=== PATIENT | female | born 1975 | race Native Hawaiian/Other Pacific Islander ===

== ENCOUNTER 2019-01-20 23:21 | Inpatient (IN) | payer SELFPAY ==
[2019-01-21 01:02] LABS: BUN/Creatinine Ratio 18; Blood Urea Nitrogen 9 mg/dL (7-17); Calcium 8.4 mg/dL (8.4-10.2); Hemolysis Index 0
--- NOTE | 2019-01-21 01:48 | XRay Report ---
CHEST 2 VIEWS INDICATION / CLINICAL INFORMATION: Dyspnea for 1.5 months. COMPARISON: None available. FINDINGS: SUPPORT DEVICES: None. HEART / MEDIASTINUM: No significant abnormality. LUNGS / PLEURA: No significant pulmonary or pleural abnormality. No pneumothorax. ADDITIONAL FINDINGS: No significant additional findings. IMPRESSION: 1. No acute findings. Signer Name: Marcelo Boss MD Signed: 01/21/2019 1:43 AM Workstation Name: [id number]
[2019-01-21 01:53] LABS: Red Blood Count 1.88 M/mm3 (3.65-5.03)
[2019-01-21 01:55] LABS: Hemoglobin 2.9 gm/dl (10.1-14.3)
[2019-01-21 01:56] LABS: Hematocrit 10.8 % (30.3-42.9); Mean Corpuscular HGB Conc 27 % (30-34); Mean Corpuscular Volume 57 fl (79-97); Platelet Count 279 K/mm3 (140-440); Red Cell Distribution Width 23.3 % (13.2-15.2)
--- NOTE | 2019-01-21 02:06 | Emergency Department Report ---
ED Female HPI - General Chief complaint: Vaginal Bleeding Stated complaint: CHEST PAIN, SWOLLEN FEET, HEAD PRESSURE Source: patient Mode of arrival: Ambulatory Limitations: No Limitations - History of Present Illness Initial comments: Patient is a A1 43-year-old female with no past medical history who presents to the ED with complaint of acute onset persistent heavy vaginal bleeding for 3 months, and persistent generalized fatigue and weakness, shortness of breath, chest pain and bilateral lower extremities edema for the last 2 months. Patient states that she has not been evaluated by any physician. Patient states that her shortness of breath is worse with exertion. Patient denies dizziness, syncope, fever, chills, cough, abdominal pain, dysuria, urin antoni frequency and urgency, seizures, nausea and vomiting or diarrhea. MD Complaint: vaginal bleeding, other (generalized weakness and fatigue, shortness of breath and chest pain) -: Gradual, month(s) (3) Location: other (vaginal) Radiation: non-radiating Severity: mild Severity scale (0 -10): 2 Quality: cramping, dull Consistency: intermittent Improves with: none Worsens with: none Are you Now?: No Associated Symptoms: denies other symptoms, vaginal bleeding, hematuria, shortness of breath, weakness. denies: vaginal discharge, abdominal pain, nausea/vomiting, fever/chills, headaches, loss of appetite, dysuria, rash, seizure, syncope - Related Data Sexually active: Yes Allergies Allergy/AdvReac Type Severity Reaction Status Date / Time No Known Allergies Allergy Unverified 01/20/19 23:45 ED Review of Systems ROS: Stated complaint: CHEST PAIN, SWOLLEN FEET, HEAD PRESSURE Other details as noted in HPI Constitutional: weakness. denies: chills, fever Eyes: denies: eye pain, eye discharge, vision change ENT: denies: ear pain, throat pain Respiratory: shortness of breath. denies: cough, wheezing Cardiovascular: chest pain. denies: palpitations Endocrine: no symptoms reported Gastrointestinal: denies: abdominal pain, nausea, vomiting, diarrhea Genitourinary: denies: urgency, dysuria, discharge Musculoskeletal: denies: back pain, joint swelling, arthralgia Skin: denies: rash, lesions Neurological: denies: headache, weakness, paresthesias Psychiatric: denies: anxiety, depression Hematological/Lymphatic: denies: easy bleeding, easy bruising ED Past Medical Hx - Past Medical History Previous Medical History?: No - Surgical History Past Surgical History?: Yes Hx Appendectomy: Yes - Social History Smoking Status: Current Every Day Smoker Substance Use Type: Marijuana ED Physical Exam - General Limitations: No Limitations General appearance: alert, in no apparent distress - Head Head exam: Present: atraumatic, normocephalic, normal inspection - Eye Eye exam: Present: normal appearance, PERRL, EOMI Pupils: Present: normal accommodation - ENT ENT exam: Present: normal exam, normal orophraynx, mucous membranes moist, TM's normal bilaterally, normal external ear exam - Neck Neck exam: Present: normal inspection, full ROM - Respiratory Respiratory exam: Present: normal lung sounds bilaterally. Absent: respiratory distress, wheezes, rales, rhonchi, chest wall tenderness, decreased breath sounds, prolonged expiratory - Cardiovascular Cardiovascular Exam: Present: normal rhythm, tachycardia, normal heart sounds. Absent: systolic murmur, diastolic murmur, rubs, gallop - GI/Abdominal GI/Abdominal exam: Present: soft, normal bowel sounds. Absent: tenderness, guarding, rebound, hyperactive bowel sounds, hypoactive bowel sounds, organomega ly, mass - Bi-manual exam: Present: other (deferred pelvic exam, patient preference) - Extremities Exam Extremities exam: Present: normal inspection, normal capillary refill - Back Exam Back exam: Present: normal inspection, full ROM. Absent: CVA tenderness (L), paraspinal tenderness, vertebral tenderness - Neurological Exam Neurological exam: Present: alert, oriented X3, CN II-XII intact, normal gait, reflexes normal - Psychiatric Psychiatric exam: Present: normal affect, normal mood - Skin Skin exam: Present: warm, dry, intact, normal color. Absent: rash ED Course Vital Signs 01/20/19 23:32 Temperature 98.9 F Pulse Rate 108 H Respiratory 16 Rate Blood Pressure 120/52 O2 Sat by Pulse 99 Oximetry - Reevaluation(s) Reevaluation #1: 01/21/19 02:05 This is a 43-year-old female who presented to the ED with persistent heavy vaginal bleeding, generalized weakness and fatigue, shortness of breath and chest pain with bilateral lower extremity edema for the last 3 months worse in the last 1 month. In the ED, patient is alert and oriented 3, is tachycardic in triage but in no acute distress. Chest x-ray shows no acute cardiopulmonary abnormalities or pneumonitis. EKG shows sinus tachycardia with ventricular rate of 109 bpm, no ST or T-wave abnormalities or pathological Q waves. Lab test results were reviewed and showed hemoglobin of 2.9% and hematocrit of 10.8. The rest of the lab test results are nonactionable. Patient received normal saline IV fluids in the ED, type and screen of the blood was also ordered. The plan is to admit the patient to the hospital for further blood transfusion. Complicated the same plan to the patient and family verbalized understanding. Patient case discussed with the ED attending Physician Dr. Naylor who advised on admission to the Hospitalist Physician telephone solicitor Dr. Marte. 01/21/19 02:07 01/21/19 02:08 Reevaluation #2: 01/21/19 02:21 This is a patient's case with the hospitalist physician telephone solicitor Dr. Marte who advised that the patient be admitted by the CAGER OPERATOR physician on-call since the patient is still having vaginal bleeding, as the cause of the anemia. 01/21/19 03:00 Reevaluation #3: 01/21/19 02:40 I paged and discussed the patient's case with Ms Martinez the application services manager telephone solicitor for Dr. Kumar the [facility] OPERATOR physician of [facility] group who in turn paged Dr. Kumar for direction. I then discussed the patient's case with Dr. Kumar, the [facility] [facility] Physician telephone solicitor who admitted the patient to mother-baby floor for further evaluation. ED Medical Decision Making - Lab Data Result diagrams: 01/21/19 01:09 01/21/19 00:05 - EKG Data EKG shows normal: sinus rhythm Rate: tachycardia - EKG Data 01/21/19 02:10 Sinus tachycardia, ventricular rate of 109 bpm, no ST or T-wave abnormalities or pathological Q waves - Radiology Data Radiology results: report reviewed, image reviewed Chest x-ray shows no acute cardiopulmonary abnormalities or pneumonitis. - Medical Decision Making This is a 43-year-old female who presented to the ED with persistent heavy vaginal bleeding, generalized weakness and fatigue, shortness of breath and chest pain with bilateral lower extremity edema for the last 3 months worse in the last 1 month. In the ED, patient is alert and oriented 3, is tachycard ic in triage but in no acute distress. Chest x-ray shows no acute cardiopulmonary abnormalities or pneumonitis. EKG shows sinus tachycardia with ventricular rate of 109 bpm, no ST or T-wave abnormalities or pathological Q waves. Lab test results were reviewed and showed hemoglobin of 2.9% and hem atocrit of 10.8. The rest of the lab test results are nonactionable. Patient received normal saline IV fluids in the ED, type and screen of the blood was also ordered. The plan is to admit the patient to the hospital for further blood transfusion. Complicated the same plan to the patient and family verbalized understanding. Patient case discussed with the ED attending Physician Dr. Naylor who advised on admission to the Hospitalist Physician telephone solicitor Dr. Marte. This is a patient's case with the hospitalist physician telephone solicitor Dr. Marte who advised that the patient be admitted by the CAGER OPERATOR physician on-call since the patient is still having vaginal bleeding, as the cause of the anemia. I then discussed the patient's case with Dr. Kumar, the [facility] [facility] Physician telephone solicitor who admitted the patient to mother-baby floor for further evaluation. - Differential Diagnosis Microcytic anemia; Generalized weakness; Vaginal bleeding Critical Care Time: Yes Critical care time in (mins) excluding proc time.: 45 Critical care attestation.: If time is entered above; I have spent that time in minutes in the direct care of this critically ill patient, excluding procedure time. Critical Care Time: 45 minutes ED Disposition Clinical Impression: Hx of microcytic hypochromic anemia, Dysfunctional uterine hemorrhage, Generalized weakness Disposition: 09 OP ADMIT IP TO THIS HOSP Is pt being admited?: Yes Condition: Stable Referrals: PRIMARY CARE, [Primary Care Provider] - 3-5 Days Time of Disposition: 03:02 Print Language: THAI
[2019-01-21] MEDS ORDERED: SODIUM CHLORIDE 0.9% 500 ML 500 ML IV ONE (03:10)
[2019-01-21] MEDS ORDERED: MORPHINE 4 MG/1 ML INJ IV ONE (04:37)
[2019-01-21] MEDS ORDERED: ONDANSETRON 4 MG/2 ML INJ IV ONE (04:37)
[2019-01-21] MEDS ORDERED: MORPHINE 4 MG/1 ML INJ ONE (04:41)
[2019-01-21] MEDS ORDERED: ONDANSETRON 4 MG/2 ML INJ ONE (04:41)
[2019-01-21 05:22] LABS: Basophils % (Manual) 0 % (0.0-1.8); Hypochromasia 3+; Total Cells Counted 100
[2019-01-21 05:23] LABS: Anisocytosis 1+; Poikilocytosis 1+
[2019-01-21 05:27] LABS: Macrocytosis Few; Platelet Estimate Consistent w Auto
[2019-01-21] MEDS ORDERED: SODIUM CHLORIDE 0.9% 500 ML 500 ML ONE (10:33)
[2019-01-21] MEDS ORDERED: MAGNESIUM HYDROXIDE (MOM) ORAL LIQD UDC PO PRN (12:01)
[2019-01-21] MEDS ORDERED: diphenhydrAMINE 50 MG CAP PO SCH (12:05)
--- NOTE | 2019-01-21 12:23 | History and Physical Report ---
History of Present Illness Date of examination: 01/21/19 Date of admission: 01/21/19 03:06 History of present illness: This is a 42-year-old female para [id number] consents to the emergency room states after 3 months of heavy vaginal bleeding. Patient's day 3 months ago she had normal monthly menses lasting 7 days with moderate cramping and heavy bleeding but the past 90 days and had increasing number of days of bleeding some very heavy she had weakness chest pain shortness of breath brought her to the emergency room. Workup in the emergency room revealed a hemoglobin of 2 patient's been admitted for blood transfusion and evaluation. Past History Past Medical History: No medical history Past Surgical History: appendectomy, Other ( tubal ligation) Social history: , lives with family, smoking (1 pack a day for greater than 10 years), full code, other (unemployed and uses marijuana occasionally) Family history: diabetes, hypertension Medications and Allergies Allergies Allergy/AdvReac Type Severity Reaction Status Date / Time No Known Allergies Allergy Verified 01/21/19 05:06 Active Meds: Active Medications Acetaminophen (Tylenol) 650 mg PO ONCE ONE Stop: 01/21/19 12:05 Diphenhydramine HCl (Benadryl) 50 mg PO PRETR GERMAINE Stop: 01/22/19 06:00 Docusate Sodium (Colace) 100 mg PO BID [facility] Estrogens Conjugated (Premarin) 25 mg IV ONCE ONE Stop: 01/21/19 12:07 Sodium Chloride (Nacl 0.9% 1000 Ml) 1,000 mls @ 100 mls/hr IV DIRECT GERMAINE Ibuprofen (Ibuprofen) 600 mg PO Q6H PRN PRN Reason: Pain, Mild (1-3) Magnesium Hydroxide (Milk Of Magnesia) 30 ml PO Q4H PRN PRN Reason: Constipation Sodium Chloride (Sodium Chloride Flush Syringe 10 Ml) 10 ml IV BID [facility] Review of Systems Constitutional: fatigue Genitourinary Female: dysmenorrhea Menstruation: currently menstrual, period heavy, menses 1-7 days, cycle variable Exam - Constitutional Vitals: Temp Pulse Resp BP Pulse Ox 97.9 F 67 18 118/62 99 01/21/19 07:29 01/21/19 08:30 01/21/19 08:30 01/21/19 08:30 01/21/19 08:30 General appearance: Present: no acute distress, other (patient is receiving her third unit of blood is alert) - Respiratory Respiratory effort: normal - Extremities Extremities: no ischemia - Abdominal General gastrointestinal: Present: soft, non-tender Female genitourinary: Present: other (only a small amount of blood on pad) - Rectal Rectal Exam: other - Integumentary Integumentary: Present: clear, warm, dry - Psychiatric Psychiatric: appropriate mood/affect Results - Labs CBC & Chem 7: 01/21/19 01:09 01/21/19 00:05 Labs: Abnormal lab results 01/21/19 01/21/19 01/21/19 Range/Units 00:05 01:09 02:15 RBC 1.88 L (3.65-5.03) M/mm3 Hgb 2.9 L* (10.1-14.3) gm/dl Hct 10.8 L* (30.3-42.9) % MCV 57 L (79-97) fl MCH 16 L (28-32) pg MCHC 27 L (30-34) % RDW 23.3 H (13.2-15.2) % Seg Neuts % (Manual) 77.0 H (40.0-70.0) % Nucleated RBC % 1.0 H (0.0-0.9) % Potassium 3.4 L (3.6-5.0) mmol/L Creatinine 0.5 L (0.7-1.2) mg/dL Glucose 123 H (65-100) mg/dL Crossmatch See Detail Assessment and Plan - Patient Problems (1) Anemia due to chronic blood loss Current Visit: Yes Status: Acute Plan to address problem: Patient received 4 units of packed red blood cells appears to be secondary to #2 (2) Dysfunctional uterine hemorrhage Current Visit: Yes Status: Acute Plan to address problem: We'll give IV Premarin to stop bleeding. We'll obtain pelvic ultrasound to rule out uterine abnormalities. (3) Generalized weakness Current Visit: Yes Status: Acute
[2019-01-21] MEDS ORDERED: SODIUM CHLORIDE 0.9% 1000 ML 1,000 ML IV SCH (13:00)
[2019-01-21] MEDS ORDERED: ACETAMINOPHEN 325 MG TAB PO ONE (13:04)
[2019-01-21] MEDS ORDERED: ESTROGENS, CONJUGATED 25 MG INJ IV ONE (14:06)
[2019-01-21] MEDS ORDERED: ACETAMINOPHEN 325 MG TAB ONE (15:58)
--- NOTE | 2019-01-21 18:14 | Event Note ---
Date: 01/21/19 Spoke with patient's nurse, states transfusion has been completed. Patient is ambulating well. Ultrasound is pending. Will order post-transfusion hematocrit.
--- NOTE | 2019-01-21 19:04 | Ultrasound Report ---
US transvaginal INDICATION / CLINICAL INFORMATION: menorrhagia. COMPARISON: None available. FINDINGS: The uterus measures 12 cm with a 7 mm endometrial stripe. A 5 cm uterine fibroid is demonstrated in the posterior uterine fundus. Only the right ovary was visualized. The right ovary measures 2.3 x 2.1 cm. A 9 mm cyst is also identified in the right ovary. Very small amount of free fluid is seen in the cul-de-sac. Doppler imaging shows a right ovarian blood flow. IMPRESSION: 1. Mildly enlarged fibroid uterus. 2. Tiny right ovarian cyst. 3. Left ovary not visualized. Signer Name: Jayant Leonard MD Signed: 01/21/2019 7:00 PM Workstation Name: [id number]
[2019-01-21 23:00] LABS: Hematocrit 27.2 % (30.3-42.9); Hemoglobin 8.6 gm/dl (10.1-14.3)
[2019-01-21] MEDS: DOCUSATE SODIUM 100 MG CAP PO SCH (23:55)
[2019-01-21] MEDS: IBUPROFEN 600 MG TAB PO PRN (23:56)
[2019-01-22 02:31] LABS: Bilirubin,Urine NEG (Negative); Blood,Urine LG (Negative); Color,Urine Straw (Yellow); Protein,Urine <15 mg/dL mg/dL (Negative); Urobilinogen,Urine < 2.0 mg/dL (<2.0)
[2019-01-22 02:38] LABS: WBC,Urine < 1.0 /HPF (0.0-6.0)
[2019-01-22 04:32] VITALS: BP 122/56
[2019-01-22] MEDS: IBUPROFEN 600 MG TAB PO PRN (11:03)
[2019-01-22] MEDS: DOCUSATE SODIUM 100 MG CAP PO SCH (11:03)
--- NOTE | 2019-01-22 16:49 | Discharge Summary ---
Providers - Providers Date of Admission: 01/21/19 03:06 Date of discharge: 01/22/19 Attending physician: JAIRON BLAND 01/21/19 03:03 Consult to Physician [CONS] Routine Comment: Will write own admission orders Consulting Provider: [facility] Physician Instructions: Admit to Mother-Baby Floor Reason For Exam: Vaginal bleeding; Anemia Primary care physician: ADMISSIONS CLERK Hospitalization Condition: Stable Hospital course: unremarkable. She presented with severe anemia, she received 2units PRBC's and Estrogen IV. Today states she feels much better today, denies bleeding. Desires d/c home Disposition: DC- TO HOME OR SELFCARE - Discharge Diagnoses (1) Anemia due to chronic blood loss Status: Chronic (2) Dysfunctional uterine hemorrhage Status: Chronic (3) Generalized weakness Status: Acute Core Measure Documentation - Palliative Care Palliative Care/ Comfort Measures: Not Applicable - Core Measures Any of the following diagnoses?: none Exam - Constitutional Vitals: Temp Pulse Resp BP Pulse Ox 98.0 F 73 18 122/56 97 01/22/19 03:55 01/22/19 03:55 01/22/19 03:55 01/22/19 03:55 01/22/19 03:55 Plan Activity: no restrictions Weight Bearing Status: Full Weight Bearing Diet: regular Follow up with: HERNANDEZ HARRIS MD [Primary Care Provider] - 3-5 Days ANALILIA VILLARREAL MD [Staff Physician] - 7 Days
== END 2019-01-22 17:50 | disposition home or self-care (01) | DRG 761 ==
LOC: ED 23:21 → OB 01-21 03:06 → 4A 01-21 08:07
PROVIDERS: ADMIT Obstetrics & Gynecology; ATTEND Obstetrics & Gynecology
PROC: 30233N1 Transfusion of Nonautologous Red Blood Cells into Peripheral Vein, Percutaneous Approach (ICD-10-PCS; principal; 2019-01-21)
DX: N93.8 Other specified abnormal uterine and vaginal bleeding (principal); D64.9 Anemia, unspecified; D50.0 Iron deficiency anemia secondary to blood loss (chronic); Z90.49 Acquired absence of other specified parts of digestive tract; Z98.51 Tubal ligation status; Z82.49 Family history of ischemic heart disease and other diseases of the circulatory system; Z83.3 Family history of diabetes mellitus
CPT/HCPCS: 36415; 36430; 71046; 76830; 80048; 81001; 83880; 84484; 84703; 85007; 85014; 85018; 85025; 86850; 86900; 86901; 86920; 93005; 93010; G0378; J1410; J2270; J2405; J7030; J7040; P9016

== ENCOUNTER 2020-10-13 15:14 | Emergency (ER) | payer SELFPAY ==
[2020-10-13 15:56] LABS: Basophils # (Auto) 0.1 K/mm3 (0.0-0.1); Basophils % (Auto) 0.7 % (0.0-1.8); Eosinophils # (Auto) 0.1 K/mm3 (0.0-0.4); Eosinophils % (Auto) 0.7 % (0.0-4.3); Lymphocytes # (Auto) 1.6 K/mm3 (1.2-5.4); Lymphocytes % (Auto) 13.7 % (13.4-35.0); Mean Corpuscular HGB Conc 26 % (30-34); Monocytes # (Auto) 0.7 K/mm3 (0.0-0.8); Monocytes % (Auto) 6.1 % (0.0-7.3); Platelet Count 352 K/mm3 (140-440); Red Blood Count 2.31 M/mm3 (3.65-5.03)
[2020-10-13 16:14] LABS: Alanine Aminotransferase 8 units/L (7-56); Albumin 3.9 g/dL (3.9-5); Blood Urea Nitrogen 14 mg/dL (7-17); Calcium 8.4 mg/dL (8.4-10.2); Hemolysis Index 0
[2020-10-13 16:15] LABS: BUN/Creatinine Ratio 28
[2020-10-13 16:24] LABS: Hemoglobin 3.5 gm/dl (10.1-14.3)
[2020-10-13 16:25] LABS: Hematocrit 13.2 % (30.3-42.9); Mean Corpuscular Volume 57 fl (79-97); Red Cell Distribution Width 23.4 % (13.2-15.2)
[2020-10-13] MEDS ORDERED: SODIUM CHLORIDE 0.9% 500 ML 500 ML IV ONE (16:25)
--- NOTE | 2020-10-13 16:42 | Emergency Department Report ---
<JANNA AGUSTIN - Last Filed: 10/13/20 17:37> ED General Adult HPI - General Chief complaint: Medical Clearance Stated complaint: BLOOD LOW Time Seen by Provider: 10/13/20 16:24 - Related Data Previous Rx's Medication Instructions Recorded Last Taken Type medroxyPROGESTERone ACETATE 10 mg PO QDAY #30 tablet 01/22/19 Unknown Rx [Provera] Docusate Sodium [Colace] 100 mg PO BID #60 capsule 10/13/20 Unknown Rx Ferrous Sulfate [Ferrous Sulfate 324 mg PO DAILY #30 tablet. 10/13/20 Unknown Rx 324 MG] methOCARBAMOL [Robaxin TAB] 500 mg PO BID PRN #20 tab 10/13/20 Unknown Rx traMADoL [Ultram 50 MG tab] 50 mg PO Q6HR PRN #12 tablet 10/13/20 Unknown Rx Allergies Allergy/AdvReac Type Severity Reaction Status Date / Time No Known Allergies Allergy Verified 01/21/19 05:06 ED Past Medical Hx - Medications Home Medications: Home Medications Medication Instructions Recorded Confirmed Last Taken Type medroxyPROGESTERone ACETATE 10 mg PO QDAY #30 tablet 01/22/19 Unknown Rx [Provera] Docusate Sodium [Colace] 100 mg PO BID #60 capsule 10/13/20 Unknown Rx Ferrous Sulfate [Ferrous Sulfate 324 mg PO DAILY #30 tablet. 10/13/20 Unknown Rx 324 MG] methOCARBAMOL [Robaxin TAB] 500 mg PO BID PRN #20 tab 10/13/20 Unknown Rx traMADoL [Ultram 50 MG tab] 50 mg PO Q6HR PRN #12 tablet 10/13/20 Unknown Rx ED Medical Decision Making - Lab Data Result diagrams: 10/13/20 15:34 10/13/20 15:34 - Medical Decision Making I evaluated patient. Patient is ambulatory without difficulty. No orthostasis. I spoke with graphics coordinator Dr. Saint Jaime. She stated that she would not perform surgical intervention if admitted to the hospital. Dr. Weston mccarthy recommended transfusion and discharged home for follow-up with gynecology. Patient encouraged to continue Provera as well as iron tablets. 2 units of packed red blood cells ordered to be transfused. Patient will be discharged thereafter. ED Disposition Clinical Impression: Dysfunctional uterine hemorrhage, Anemia due to chronic blood loss Uterine fibroid Qualifiers: Uterine leiomyoma location: unspecified location Qualified Code(s): D25.9 - Leiomyoma of uterus, unspecified Disposition: DC-01 TO HOME OR SELFCARE Condition: Stable Instructions: Uterine Fibroids, [id number], Menorrhagia, [id number] Additional Instructions: Please take medication as prescribed. Please continue taking your Provera. Follow-up with URGENT CARE NURSE PRACTITIONER. It is very important that you follow-up. Return to emergency room immediately for any new or worsening symptoms. Prescriptions: Docusate Sodium [Colace] 100 mg PO BID #60 capsule Ferrous Sulfate [Ferrous Sulfate 324 MG] 324 mg PO DAILY #30 tablet. methOCARBAMOL [Robaxin TAB] 500 mg PO BID PRN #20 tab PRN Reason: muscle spasm/pain traMADoL [Ultram 50 MG tab] 50 mg PO Q6HR PRN #12 tablet PRN Reason: Pain , Severe (7-10) Referrals: RAMYA VERDIN MD [Staff Physician] - 2-3 Days <RUDDY SMITH - Last Filed: 10/14/20 10:19> ED General Adult HPI - General Source: patient Mode of arrival: Ambulatory Limitations: No Limitations - History of Present Illness Initial comments: Patient is a 45-year-old female who presents emergency room complaints of vaginal bleeding for 3 months. Patient states that she saw a provider at [facility] yesterday and had lab work drawn. She states that she was started on Provera yesterday and took 1 dose yesterday and 1 dose today. She states initially she was having very heavy bleeding and having to change a pad and a tampon every hour. She states since taking the Provera she has only had to change every 2-3 hours. She states that she was called today by her clinic and was advised that she need to report to the ER due to low hemoglobin. Patient states that she has had this in the past. Patient states that she was last at [facility] approximately 6 months ago and was transfused at that time but never followed up with URGENT CARE NURSE PRACTITIONER. She was also seen at this hospital previously and had ultrasound which showed fibroid uterus and was also transfused at that time. She states that she has generalized weakness, fatigue, chest tightness, shortness of breath, which she states that she typically experiences when she has anemia. She denies any other past medical history. No allergies to medications. ED Review of Systems ROS: Stated complaint: BLOOD LOW Other details as noted in HPI Comment: All other systems reviewed and negative ED Past Medical Hx - Past Medical History Hx Congestive Heart Failure: No Hx Diabetes: No Hx Asthma: No Hx COPD: No - Surgical History Hx Appendectomy: Yes - Social History Smoking Status: Current Every Day Smoker ED Physical Exam - General Limitations: No Limitations General appearance: alert, in no apparent distress - Head Head exam: Present: atraumatic, normocephalic - Eye Eye exam: Present: normal appearance - ENT ENT exam: Present: mucous membranes moist - Respiratory Respiratory exam: Present: normal lung sounds bilaterally. Absent: respiratory distress, wheezes, rales, rhonchi, stridor, chest wall tenderness, accessory muscle use, decreased breath sounds, prolonged expiratory - Cardiovascular Cardiovascular Exam: Present: normal rhythm, tachycardia, normal heart sounds. Absent: systolic murmur, diastolic murmur, rubs, gallop - GI/Abdominal GI/Abdominal exam: Present: soft, normal bowel sounds. Absent: distended, tenderness, guarding, rebound, rigid - Extremities Exam Extremities exam: Absent: pedal edema - Neurological Exam Neurological exam: Present: alert, oriented X3 - Psychiatric Psychiatric exam: Present: normal affect, normal mood - Skin Skin exam: Present: warm, dry, intact ED Course Vital Signs 10/13/20 10/13/20 10/13/20 15:26 18:25 18:39 Temperature 98.9 F 98.1 F Pulse Rate 106 H 108 H Respiratory 18 21 Rate Blood Pressure 108/53 Blood Pressure 118/65 109/54 [Right] O2 Sat by Pulse 100 Oximetry 10/13/20 10/13/20 10/13/20 18:54 19:00 19:16 Temperature 98.0 F Pulse Rate 91 H 97 H 97 H Respiratory 20 14 17 Rate Blood Pressure 106/57 106/57 106/57 Blood Pressure [Right] O2 Sat by Pulse 100 Oximetry 10/13/20 10/13/20 10/13/20 19:24 19:30 19:45 Temperature 97.6 F Pulse Rate 92 H 88 89 Respiratory 17 21 18 Rate Blood Pressure 115/76 106/57 108/53 Blood Pressure [Right] O2 Sat by Pulse 100 100 Oximetry 10/13/20 10/13/20 10/13/20 20:01 20:05 20:15 Temperature 97.7 F Pulse Rate 84 88 100 H Respiratory 17 20 16 Rate Blood Pressure 120/55 120/55 115/72 Blood Pressure [Right] O2 Sat by Pulse 100 100 100 Oximetry 10/13/20 10/13/20 10/13/20 20:31 20:45 21:01 Temperature Pulse Rate 97 H 97 H 112 H Respiratory 15 22 25 H Rate Blood Pressure 104/48 120/55 90/27 Blood Pressure [Right] O2 Sat by Pulse 100 100 97 Oximetry 10/13/20 10/13/20 10/13/20 21:15 21:19 21:25 Temperature 97.6 F Pulse Rate 93 H 102 H Respiratory 21 18 14 Rate Blood Pressure 123/59 120/57 Blood Pressure [Right] O2 Sat by Pulse 100 100 Oximetry 10/13/20 10/13/20 10/13/20 21:31 21:40 21:45 Temperature Pulse Rate 90 83 79 Respiratory 13 23 16 Rate Blood Pressure 120/57 117/45 123/59 Blood Pressure [Right] O2 Sat by Pulse 100 100 100 Oximetry 10/13/20 10/13/20 10/13/20 22:01 22:10 22:15 Temperature Pulse Rate 112 H 93 H 99 H Respiratory 21 17 15 Rate Blood Pressure 97/40 113/72 97/40 Blood Pressure [Right] O2 Sat by Pulse 96 100 100 Oximetry 10/13/20 10/13/20 10/13/20 22:19 22:31 22:40 Temperature Pulse Rate 95 H 88 Respiratory 18 17 20 Rate Blood Pressure 115/57 106/68 Blood Pressure [Right] O2 Sat by Pulse 100 100 Oximetry 10/13/20 10/13/20 10/13/20 22:45 23:01 23:10 Temperature 97.6 F Pulse Rate 95 H 85 92 H Respiratory 21 15 15 Rate Blood Pressure 106/68 128/56 128/56 Blood Pressure [Right] O2 Sat by Pulse 100 100 100 Oximetry 10/13/20 10/13/20 23:15 23:31 Temperature Pulse Rate 93 H 95 H Respiratory 12 22 Rate Blood Pressure 125/59 125/59 Blood Pressure [Right] O2 Sat by Pulse 100 100 Oximetry - Consultations Consultation #1: 10/13/20 16:43 Asked private secretary to page URGENT CARE NURSE PRACTITIONER 10/13/20 16:[address] Saint Jaime, URGENT CARE NURSE PRACTITIONER regarding patient history and results, advised to order another ultrasound and she will consult on patient and asked if hospitalist could admit patient to hospital 10/13/20 17:[address] Ontiveros, hospitalist will call back 10/13/20 17:[address] Ontiveros regarding patient results, he will evaluate patient ED Medical Decision Making - Lab Data Result diagrams: 10/13/20 15:34 10/13/20 15:34 Lab Results 10/13/20 10/13/20 10/13/20 Range/Units 15:34 15:34 15:34 WBC 11.4 H (4.5-11.0) K/mm3 RBC 2.31 L (3.65-5.03) M/mm3 Hgb 3.5 L* (10.1-14.3) gm/dl Hct 13.2 L* (30.3-42.9) % MCV 57 L (79-97) fl MCH 15 L (28-32) pg MCHC 26 L (30-34) % RDW 23.4 H (13.2-15.2) % Plt Count 352 (140-440) K/mm3 Lymph % (Auto) 13.7 (13.4-35.0) % [place] % (Auto) 6.1 (0.0-7.3) % Eos % (Auto) 0.7 (0.0-4.3) % Baso % (Auto) 0.7 (0.0-1.8) % Lymph # (Auto) 1.6 (1.2-5.4) K/mm3 [place] # (Auto) 0.7 (0.0-0.8) K/mm3 Eos # (Auto) 0.1 (0.0-0.4) K/mm3 Baso # (Auto) 0.1 (0.0-0.1) K/mm3 Seg Neutrophils % 78.8 H (40.0-70.0) % Seg Neutrophils # 9.0 H (1.8-7.7) K/mm3 Sodium 133 L (137-145) mmol/L Potassium 3.6 (3.6-5.0) mmol/L Chloride 101.3 (98-107) mmol/L Carbon Dioxide 22 (22-30) mmol/L Anion Gap 13 mmol/L BUN 14 (7-17) mg/dL Creatinine 0.5 L (0.6-1.2) mg/dL Estimated GFR > 60 ml/min BUN/Creatinine Ratio 28 % Glucose 109 H (65-100) mg/dL Calcium 8.4 (8.4-10.2) mg/dL Total Bilirubin 0.30 (0.1-1.2) mg/dL AST 12 (5-40) units/L ALT 8 (7-56) units/L Alkaline Phosphatase 80 (35-129) units/L Total Protein 7.1 (6.3-8.2) g/dL Albumin 3.9 (3.9-5) g/dL Albumin/Globulin Ratio 1.2 % HCG, Quant < 2 (0-4) mIU/mL Blood Type Antibody Screen Crossmatch 10/13/20 Range/Units 15:34 WBC (4.5-11.0) K/mm3 RBC (3.65-5.03) M/mm3 Hgb (10.1-14.3) gm/dl Hct (30.3-42.9) % MCV (79-97) fl MCH (28-32) pg MCHC (30-34) % RDW (13.2-15.2) % Plt Count (140-440) K/mm3 Lymph % (Auto) (13.4-35.0) % [place] % (Auto) (0.0-7.3) % Eos % (Auto) (0.0-4.3) % Baso % (Auto) (0.0-1.8) % Lymph # (Auto) (1.2-5.4) K/mm3 [place] # (Auto) (0.0-0.8) K/mm3 Eos # (Auto) (0.0-0.4) K/mm3 Baso # (Auto) (0.0-0.1) K/mm3 Seg Neutrophils % (40.0-70.0) % Seg Neutrophils # (1.8-7.7) K/mm3 Sodium (137-145) mmol/L Potassium (3.6-5.0) mmol/L Chloride (98-107) mmol/L Carbon Dioxide (22-30) mmol/L Anion Gap mmol/L BUN (7-17) mg/dL Creatinine (0.6-1.2) mg/dL Estimated GFR ml/min BUN/Creatinine Ratio % Glucose (65-100) mg/dL Calcium (8.4-10.2) mg/dL Total Bilirubin (0.1-1.2) mg/dL AST (5-40) units/L ALT (7-56) units/L Alkaline Phosphatase (35-129) units/L Total Protein (6.3-8.2) g/dL Albumin (3.9-5) g/dL Albumin/Globulin Ratio % HCG, Quant (0-4) mIU/mL Blood Type A NEGATIVE Antibody Screen Negative Crossmatch See Detail Vital Signs (72 hours) 10/13/20 10/13/20 10/13/20 15:26 18:25 18:39 Temperature 98.9 F 98.1 F Pulse Rate 106 H 108 H Respiratory 18 21 Rate Blood Pressure 108/53 Blood Pressure 118/65 109/54 [Right] O2 Sat by Pulse 100 Oximetry 10/13/20 10/13/20 10/13/20 18:54 19:00 19:16 Temperature 98.0 F Pulse Rate 91 H 97 H 97 H Respiratory 20 14 17 Rate Blood Pressure 106/57 106/57 106/57 Blood Pressure [Right] O2 Sat by Pulse 100 Oximetry 10/13/20 10/13/20 10/13/20 19:24 19:30 19:45 Temperature 97.6 F Pulse Rate 92 H 88 89 Respiratory 17 21 18 Rate Blood Pressure 115/76 106/57 108/53 Blood Pressure [Right] O2 Sat by Pulse 100 100 Oximetry 10/13/20 10/13/20 10/13/20 20:01 20:05 20:15 Temperature 97.7 F Pulse Rate 84 88 100 H Respiratory 17 20 16 Rate Blood Pressure 120/55 120/55 115/72 Blood Pressure [Right] O2 Sat by Pulse 100 100 100 Oximetry 10/13/20 10/13/20 10/13/20 20:31 20:45 21:01 Temperature Pulse Rate 97 H 97 H 112 H Respiratory 15 22 25 H Rate Blood Pressure 104/48 120/55 90/27 Blood Pressure [Right] O2 Sat by Pulse 100 100 97 Oximetry 10/13/20 10/13/20 10/13/20 21:15 21:19 21:25 Temperature 97.6 F Pulse Rate 93 H 102 H Respiratory 21 18 14 Rate Blood Pressure 123/59 120/57 Blood Pressure [Right] O2 Sat by Pulse 100 100 Oximetry 10/13/20 10/13/20 10/13/20 21:31 21:40 21:45 Temperature Pulse Rate 90 83 79 Respiratory 13 23 16 Rate Blood Pressure 120/57 117/45 123/59 Blood Pressure [Right] O2 Sat by Pulse 100 100 100 Oximetry 10/13/20 10/13/20 10/13/20 22:01 22:10 22:15 Temperature Pulse Rate 112 H 93 H 99 H Respiratory 21 17 15 Rate Blood Pressure 97/40 113/72 97/40 Blood Pressure [Right] O2 Sat by Pulse 96 100 100 Oximetry 10/13/20 10/13/20 10/13/20 22:19 22:31 22:40 Temperature Pulse Rate 95 H 88 Respiratory 18 17 20 Rate Blood Pressure 115/57 106/68 Blood Pressure [Right] O2 Sat by Pulse 100 100 Oximetry 10/13/20 10/13/20 10/13/20 22:45 23:01 23:10 Temperature 97.6 F Pulse Rate 95 H 85 92 H Respiratory 21 15 15 Rate Blood Pressure 106/68 128/56 128/56 Blood Pressure [Right] O2 Sat by Pulse 100 100 100 Oximetry 10/13/20 10/13/20 23:15 23:31 Temperature Pulse Rate 93 H 95 H Respiratory 12 22 Rate Blood Pressure 125/59 125/59 Blood Pressure [Right] O2 Sat by Pulse 100 100 Oximetry - Radiology Data Radiology results: report reviewed Ordering Physician: EDD SOLORZANO Date of Service: 10/13/20 Procedure(s): US pelvic complete Accession Number(s): [id number] cc: EDD SOLORZANO ULTRASOUND PELVIS INDICATION / CLINICAL INFORMATION: vaginal bleeding with anemia. TECHNIQUE: Transabdominal. Duplex Color Doppler used: Yes. COMPARISON: 01/21/2019 FINDINGS: UTERUS: Uterus measures 10.4 cm in length. There is a 5 cm fibroid in the fundus. The endometrium is thickened measuring 20 mm. RIGHT ADNEXA: Right ovary is not visualized. LEFT ADNEXA: Left ovary measures 4.9 cm in length. There is a 4.3 cm simple cyst in the left ovary. Normal color Doppler blood flow. URINARY BLADDER: Not imaged FREE FLUID: None. ADDITIONAL FINDINGS: None. IMPRESSION: 1. There is a 4.3 cm simple cyst in the left ovary. 2. There is a 5 cm fibroid in the fundus of uterus. 3. There is thickening of the endometrium which measures 20 mm. Signer Name: aDniel Flores MD Signed: 10/13/2020 6:02 PM Workstation Name: [id number] Transcribed By: Dictated By: Daniel Flores MD Electronically Authenticated By: Daniel Flores MD Signed Date/Time: 10/13/201801 DD/ 58 TD/TT: Print Cancel - Medical Decision Making Patient is a 45-year-old female who presents emergency room complaints of vaginal bleeding for 3 months. Patient states that she saw a provider at [facility] yesterday and had lab work drawn. She states that she was started on Provera yesterday and took 1 dose yesterday and 1 dose today. She states initially she was having very heavy bleeding and having to change a pad and a tampon every hour. She states since taking the Provera she has only had to change every 2-3 hours. She states that she was called today by her clinic and was advised that she need to report to the ER due to low hemoglobin. Patient states that she has had this in the past. Patient states that she was last at [facility] approximately 6 months ago and was transfused at that time but never followed up with URGENT CARE NURSE PRACTITIONER. She was also seen at this hospital previously and had ultrasound which showed fibroid uterus and was also tra nsfused at that time. She states that she has generalized weakness, fatigue, chest tightness, shortness of breath, which she states that she typically experiences when she has anemia. She denies any other past medical history. No allergies to medications. Initial vitals with mild tachycardia which improved upon repeat, no significant hypotension. Lab significant for H&H of 3.5 and [address] Saint Jaime, URGENT CARE NURSE PRACTITIONER regarding patient history and results, advised to order another ultrasound and she will consult on patient and asked if hospitalist could admit patient to hospital. pelvic US: 1. There is a 4.3 cm simple cyst in the left ovary. 2. There is a 5 cm fibroid in the fundus of uterus. 3. There is thickening of the endometrium which measures [address] Arianne Agustin, ER attending spoke with Dr. Saint Jaime, URGENT CARE NURSE PRACTITIONER and Dr. Ontiveros, hospitalist regarding patient, advised that she did not need surgical intervention at this time and she could be transfused and discharged home, please see Dr. Arianne Agustin's note. Patient given 2 units of packed red blood cells while in the emergency department. Patient observed over multiple hours without any complications. Patient had no hypotension upon discharge and was feeling better. Discussed in detail with patient the importance of URGENT CARE NURSE PRACTITIONER follow-up. Discussed very strict return precautions with patient. Patient given prescription for medications. Advised patient Please take medication as prescribed. Please continue taking your Provera. Follow-up with URGENT CARE NURSE PRACTITIONER. It is very important that you follow-up. Return to emergency room immediately for any new or worsening symptoms. Critical care attestation.: If time is entered above; I have spent that time in minutes in the direct care of this critically ill patient, excluding procedure time. ED Disposition Is pt being admited?: No Does the pt Need Aspirin: No
--- NOTE | 2020-10-13 18:07 | Ultrasound Report ---
ULTRASOUND PELVIS INDICATION / CLINICAL INFORMATION: vaginal bleeding with anemia. TECHNIQUE: Transabdominal. Duplex Color Doppler used: Yes. COMPARISON: 01/21/2019 FINDINGS: UTERUS: Uterus measures 10.4 cm in length. There is a 5 cm fibroid in the fundus. The endometrium is thickened measuring 20 mm. RIGHT ADNEXA: Right ovary is not visualized. LEFT ADNEXA: Left ovary measures 4.9 cm in length. There is a 4.3 cm simple cyst in the left ovary. N ormal color Doppler blood flow. URINARY BLADDER: Not imaged FREE FLUID: None. ADDITIONAL FINDINGS: None. IMPRESSION: 1. There is a 4.3 cm simple cyst in the left ovary. 2. There is a 5 cm fibroid in the fundus of uterus. 3. There is thickening of the endometrium which measures 20 mm. Signer Name: Daniel Flores MD Signed: 10/13/2020 6:02 PM Workstation Name: [id number]
[2020-10-13] MEDS ORDERED: SODIUM CHLORIDE 0.9% 500 ML 500 ML ONE ×2 (18:32→20:58)
[2020-10-13] MEDS ORDERED: HYDROcodone/ACETAMINOPHEN 5-325 MG TAB PO ONE (21:07)
[2020-10-13 23:44] VITALS: BP 125/59
== END 2020-10-13 23:55 | disposition home or self-care (01) ==
LOC: ED 15:14
DX: N93.8 Other specified abnormal uterine and vaginal bleeding (principal); D63.8 Anemia in other chronic diseases classified elsewhere; D25.9 Leiomyoma of uterus, unspecified
CPT/HCPCS: 36415; 36430; 76856; 80053; 84702; 85025; 86850; 86900; 86901; 86920; 96360; 96361; 99284; J7040; P9016